=== PATIENT | female | born 1980 | race Caucasian/White ===

== ENCOUNTER 2024-01-21 04:59 | Emergency (ER) | payer BC ==
[~2024-01-21] VITALS: Ht 165.1 cm; Wt 81.8 kg
[2024-01-21 05:04] VITALS: TEMP 98.6
[2024-01-21] MEDS ORDERED: LORazepam 0.5 MG TAB PO ONE (05:30)
[2024-01-21 05:32] VITALS: BP 124/65; PULSE 81
== END 2024-01-21 05:32 | disposition home or self-care (01) ==
LOC: COL.ER 04:59
DX: F41.9 Anxiety disorder, unspecified (principal)